=== PATIENT | female | born 1965 | race Caucasian/White ===

== ENCOUNTER → 2022-03-27 | Outpatient (CLI) | payer OTHER, MEDICAID ==
[~2022-03-27] MED LIST: CARB1TAB42 PO; HYDR-4353 PO
== END | disposition home or self-care (01) ==
LOC: VAS 16:03
PROVIDERS: ATTEND Orthopaedic Surgery
DX: M79.661 Pain in right lower leg (principal)
CPT/HCPCS: 93971

== ENCOUNTER 2022-06-21 06:17 | Inpatient (IN) | payer OTHER ==
[2022-06-15 13:17] LABS: BASOPHILS # (AUTO) 0.1 X10'3 (0-0.2); BASOPHILS % (AUTO) 1.1 % (0-1); EOSINOPHILS # (AUTO) 0.2 X10'3 (0-0.9); EOSINOPHILS % (AUTO) 3.5 % (0-6); LYMPHOCYTES # (AUTO) 1.7 X10'3 (1.1-4.8); LYMPHOCYTES % (AUTO) 29.8 % (21-51); MEAN CORPUSCULAR HEMOGLOBIN 28.6 PG (27.0-31.0); MEAN CORPUSCULAR HGB CONC 32.6 g/dL (33.0-36.5); MEAN CORPUSCULAR VOLUME 87.9 FL (78-98); MEAN PLATELET VOLUME 7.6 FL (7.4-10.4); MONOCYTES # (AUTO) 0.5 X10'3 (0-0.9); MONOCYTES % (AUTO) 8.9 % (2-12); NEUTROPHILS # (AUTO) 3.2 X10'3 (1.8-7.7); NEUTROPHILS % (AUTO) 56.7 % (42-75); PRE OP HEMATOCRIT 44.1 % (35.0-45.0); PRE OP HEMOGLOBIN 14.4 g/dL (12.0-16.0); PRE OP PLATELET COUNT 359 X10'3 (140-440); RED BLOOD COUNT 5.01 X10'6 (4.20-5.60); RED CELL DISTRIBUTION WIDTH 14.2 % (11.5-14.5)
[2022-06-15 13:31] LABS: ALBUMIN 3.7 G/DL (3.4-5.0); ALBUMIN/GLOBULIN RATIO 1.1 (1.1-1.5); ALKALINE PHOSPHATASE 135 IU/L (46-116); BLOOD UREA NITROGEN 13 MG/DL (7-18); BUN/CREATININE RATIO 16.3 (10.0-20.0); CALCIUM 9.2 MG/DL (8.5-10.1); CHLORIDE 103 MMOL/L (99-107); PRE OP ALT 24 U/L (30-65); PRE OP ANION GAP 7 (8-16); PRE OP AST 23 U/L (10-37); PRE OP BILIRUB, TOTAL 0.3 MG/DL (0.0-1.0); PRE OP GLUCOSE 112 MG/DL (70-104); PRE OP POTASSIUM 4.2 MMOL/L (3.4-5.1); PRE OP SODIUM 138 MMOL/L (135-145); TOTAL CARBON DIOXIDE 27.6 MMOL/L (24-32); TOTAL PROTEIN 7.2 G/DL (6.4-8.2); eGFR 74 ML/MIN
[2022-06-21] VITALS (18 sets, daily range): BP systolic 113–154; BP diastolic 72–95
[~2022-06-21] VITALS: Ht 160 cm; Wt 75.8 kg
[~2022-06-21 06:17] MED LIST changes: -CARB1TAB42 PO; -HYDR-4353 PO; +NO HOME MEDS; +cefazolin 2gm/D5W 100mL 100 ML IV ONE; +famotidine 20mg tablet PO ONE; +ringers solution, lacted 1,000 ML IV SCH; +tranexamic acid inj. 1,000 MG in normal saline IV soln 100ML IV ONE; +vancomycin 1,500 MG in NS 300ml IV soln IV ONE
[2022-06-21] MEDS ORDERED: epiNEPHrine 1 mg/ml inj ONE (07:33)
[2022-06-21] MEDS ORDERED: ROPIVAcaine 0.5% (5mg/ml) 30ml vial ONE (07:34)
[2022-06-21] MEDS ORDERED: vancomycin 1,000mg inj ONE (07:34)
[2022-06-21] MEDS ORDERED: morphine 10mg/ml inj. ONE (07:34)
[2022-06-21] MEDS ORDERED: cloNIDine hcl/PF 100mcg/ml inj ONE (07:58)
[2022-06-21] MEDS ORDERED: MIDAZolam 1 MG/ML 5ML VIAL ONE (07:59)
[2022-06-21] MEDS ORDERED: fentaNYL/PF 50MCG/1 ML 2ML syringe ONE ×2 (07:59→10:26)
[2022-06-21] MEDS ORDERED: morphine 4 MG/ML inj SYRINge IV PRN (09:45)
[2022-06-21] MEDS ORDERED: ondansetron/PF 4mg/2ml inj IV PRN ×2 (09:45→11:25)
[2022-06-21] MEDS ORDERED: morphine 2 MG/ML inj. syringe IV PRN (09:45)
[2022-06-21] MEDS ORDERED: ringers solution, lacted 1,000 ML IV SCH (09:45)
[2022-06-21] MEDS ORDERED: meperidine/PF 25mg/ml syringe IV PRN ×3 (09:45)
[2022-06-21] MEDS ORDERED: proCHLORperazine 10 MG/2 ml inj IV PRN (09:45)
[2022-06-21] MEDS ORDERED: ketamine 50mg/5ml syringe ONE (09:47)
[2022-06-21] MEDS ORDERED: ROPIVAcaine 0.2% (10 MG/5 ML) BOLUS INJECTION ADDCANAL PRN (09:50)
[2022-06-21] MEDS ORDERED: dexamethasone sod phosphate 4mg/ml inj. ONE (09:50)
[2022-06-21] MEDS ORDERED: propofol inj 20 ML IV ONE (09:50)
[2022-06-21] MEDS ORDERED: LIDOcaine 1%/PF 5ML 10 MG/ML VIAL ONE (09:50)
[2022-06-21] MEDS ORDERED: acetaminophen 1,000mg/100ml IV 100 ML IV ONE (10:53)
[2022-06-21] MEDS ORDERED: acetaminophen 325mg tablet PO PRN (11:25)
[2022-06-21] MEDS ORDERED: naloxone 0.4 mg/ml inj IV PRN (11:25)
[2022-06-21] MEDS ORDERED: magnesium hydroxide 30ml (MOM) UD suspension PO PRN (11:25)
[2022-06-21] MEDS ORDERED: oxyCODONE IR 5mg (immed. release) tablet PO PRN (11:25)
[2022-06-21] MEDS ORDERED: bisacodyl 10mg suppository rectal RC PRN (11:25)
--- NOTE | 2022-06-21 11:35 | NUR ---
Received from OR via BED, accompanied by Anesthesiologist and report given by Anesthesiologist. PATIENT WAKING UP, NO S/S OF PAIN, V/S WNL, SCD ON, 20G TO RUE, DILMA drsg to LEFT KNEE CDI with ON Q BALL AT 2ML/HR. F/C DRAINING CLEAR YELLOW URINE.
[2022-06-21] MEDS: ROPIVAcaine 0.2%/PF PUMP/bolus 545 ML ADDCANAL SCH (11:53)
[2022-06-21] MEDS: oxyCODONE IR 5mg (immed. release) tablet PO PRN (12:24)
--- NOTE | 2022-06-21 12:25 | NUR ---
PATIENT A&OX4, 06/26 PAIN SEE EMAR, V/S WNL, SCD ON, 20G TO RUE, DILMA drsg to LEFT KNEE CDI with ON Q BALL AT 2ML/HR. F/C DRAINING CLEAR YELLOW URINE. PATIENT TAKEN TO ROOM WITH ALL BELONGINGS AND HOOKED UP TO MONITORS IN ROOM AND GIVEN CALL LIGHT, REPORT GIVEN TO RN WHO HAS TAKEN OVER PATIENT CARE.
[2022-06-21] MEDS: tranexamic acid inj. 1,000 MG in normal saline 100ml IV soln 90 ML IV ONE ×2 (15:09→15:14)
[2022-06-21] MEDS: acetaminophen 325mg tablet PO SCH ×2 (15:10→20:26)
[2022-06-21] MEDS: gabapentin 300mg capsule PO SCH ×2 (15:11→20:27)
[2022-06-21] MEDS: ceFAZolin/D5W- 1GM premix 50 ML IV SCH ×2 (16:48→23:32)
--- NOTE | 2022-06-21 18:11 | NUR ---
Problems reprioritized. Patient report given, questions answered & plan of care reviewed with PRUDENCE RN.
[2022-06-21] MEDS: potassium cl 20mEq in 1/2 NS 1,000 ML IV SCH (19:08)
[2022-06-21] MEDS: HYDROmorphone 1 mg/ml syringe IV PRN (19:09)
[2022-06-21] MEDS ORDERED: vancomycin/NS 1 GM ADD-VANTAGE 250 ML IV SCH (20:00)
[2022-06-21] MEDS: sennosides 8.6mg tablet PO SCH (20:27)
[2022-06-22] MEDS: acetaminophen 325mg tablet PO SCH ×4 (01:55→20:15)
[2022-06-22 02:11] VITALS: BP 129/81
[2022-06-22] MEDS: potassium cl 20mEq in 1/2 NS 1,000 ML IV SCH (03:59)
[2022-06-22] MEDS: oxyCODONE IR 5mg (immed. release) tablet PO PRN ×4 (04:00→23:10)
[2022-06-22] MEDS: HYDROmorphone 1 mg/ml syringe IV PRN ×3 (06:28→18:58)
--- NOTE | 2022-06-22 06:31 | NUR ---
Problems reprioritized. Patient report given, questions answered & plan of care reviewed with SACHIN CARRANZA.
--- NOTE | 2022-06-22 06:36 | NUR ---
Patient in room [facility]. I have received report from pari patino and had the opportunity to ask questions and assume patient care.
[2022-06-22 07:08] VITALS: BP 147/85
[2022-06-22] MEDS: enoxaparin 30mg/0.3ml syringe SQ SCH (08:00)
--- NOTE | 2022-06-22 08:15 | NUR ---
notified by PT that pts surgical wound was bleeding through dressing before getting pt out of bed. dressing was reinforced with 4x4s, gauze, and new knee wrap. pt was examined by dr matson and notified of wound bleeding.
[2022-06-22] MEDS: gabapentin 300mg capsule PO SCH (08:25)
[2022-06-22 10:00] VITALS: BP 158/94
--- NOTE | 2022-06-22 11:00 | NUR ---
Pts rodrickther confronted me in the hallway very aggressively upset that the pts pulido cath was taken out. i explained that it was normal protocol to take them out post op day 1. she asked if she has peed yet, i told her that she had not but sometimes it takes 4-6 hrs for pt to feel the urge to void. we got pt up to commode and she voided. bladder scan was done after and had 0 mls.
[2022-06-22] MEDS ORDERED: carbidopa/levodopa 10/100mg tab PO ONE (12:23)
[2022-06-22 13:59] LABS: BASOPHILS # (AUTO) 0.1 X10'3 (0-0.2); BASOPHILS % (AUTO) 0.5 % (0-1); EOSINOPHILS % (AUTO) 0.1 % (0-6); HEMATOCRIT 37.7 % (35.0-45.0); HEMOGLOBIN 12.3 g/dl (12.0-16.0); LYMPHOCYTES # (AUTO) 1.3 X10'3 (1.1-4.8); LYMPHOCYTES % (AUTO) 11.8 % (21-51); MEAN CORPUSCULAR HGB CONC 32.6 g/dL (33.0-36.5); MEAN CORPUSCULAR VOLUME 88.8 FL (78-98); MEAN PLATELET VOLUME 7.9 FL (7.4-10.4); MONOCYTES # (AUTO) 1.3 X10'3 (0-0.9); NEUTROPHILS # (AUTO) 8.2 X10'3 (1.8-7.7); NEUTROPHILS % (AUTO) 75.6 % (42-75); PLATELET COUNT 321 X10'3 (140-440); RED BLOOD COUNT 4.25 X10'6 (4.20-5.60); RED CELL DISTRIBUTION WIDTH 14.8 % (11.5-14.5); WHITE BLOOD COUNT 10.8 X10'3 (4.5-11.0)
[2022-06-22] MEDS: sennosides 8.6mg tablet PO SCH (14:38)
--- NOTE | 2022-06-22 16:04 | NUR ---
Joint surgery consult: Pt s/p L knee surgery this admit per EMR. Pt sleeping/snoring during RD visit; written high protein diet ed w/ RD contact information left at bedside. Addendum: 06/22/22 at [address] Amended: Links added.
[2022-06-22 18:00] VITALS: BP 160/76
--- NOTE | 2022-06-22 18:31 | NUR ---
Problems reprioritized. Patient report given, questions answered & plan of care reviewed with lona patino.
[2022-06-22] MEDS: celeCOXIB 100mg capsule PO SCH (20:16)
[2022-06-22 22:00] VITALS: BP 158/80
[2022-06-22] MEDS: carbidopa/levodopa 10/100mg tab PO SCH (22:22)
[2022-06-23] MEDS: HYDROmorphone 1 mg/ml syringe IV PRN ×3 (00:39→12:24)
[2022-06-23] MEDS: acetaminophen 325mg tablet PO SCH ×2 (02:00→10:05)
[2022-06-23] MEDS: ROPIVAcaine 0.2%/PF PUMP/bolus 545 ML ADDCANAL SCH (03:45)
[2022-06-23] MEDS: oxyCODONE IR 5mg (immed. release) tablet PO PRN ×5 (04:49→22:50)
[2022-06-23 06:00] VITALS: BP 170/84
--- NOTE | 2022-06-23 06:40 | NUR ---
Patient in room [facility]. I have received report from TERE Sheth and had the opportunity to ask questions and assume patient care.
[2022-06-23 08:47] LABS: BASOPHILS % (AUTO) 0.4 % (0-1); EOSINOPHILS % (AUTO) 0.4 % (0-6); HEMATOCRIT 35.7 % (35.0-45.0); HEMOGLOBIN 11.5 g/dl (12.0-16.0); LYMPHOCYTES # (AUTO) 1.1 X10'3 (1.1-4.8); LYMPHOCYTES % (AUTO) 11.9 % (21-51); MEAN CORPUSCULAR HEMOGLOBIN 28.8 PG (27.0-31.0); MEAN CORPUSCULAR HGB CONC 32.3 g/dL (33.0-36.5); MEAN CORPUSCULAR VOLUME 89.2 FL (78-98); MEAN PLATELET VOLUME 8.2 FL (7.4-10.4); MONOCYTES # (AUTO) 0.8 X10'3 (0-0.9); MONOCYTES % (AUTO) 9.4 % (2-12); NEUTROPHILS # (AUTO) 6.9 X10'3 (1.8-7.7); NEUTROPHILS % (AUTO) 77.9 % (42-75); PLATELET COUNT 259 X10'3 (140-440); RED BLOOD COUNT 4.01 X10'6 (4.20-5.60); RED CELL DISTRIBUTION WIDTH 14.4 % (11.5-14.5); WHITE BLOOD COUNT 8.9 X10'3 (4.5-11.0)
[2022-06-23 10:00] VITALS: BP 153/87
[2022-06-23] MEDS: celeCOXIB 100mg capsule PO SCH ×2 (10:05→20:04)
[2022-06-23] MEDS: enoxaparin 30mg/0.3ml syringe SQ SCH (10:06)
--- NOTE | 2022-06-23 10:30 | NUR ---
called toni guerrero re: pts surgical wound was bleeding and knee was swollen. she stated that she would be up to the floor see the soon. Addendum: 06/23/22 at 1558 by Naty Alvarez RN date of occurrence was 06/22/22 1030
[2022-06-23] MEDS ORDERED: acetaminophen 325mg tablet PO PRN (11:25)
[2022-06-23 18:00] VITALS: BP 140/83
--- NOTE | 2022-06-23 18:50 | NUR ---
Problems reprioritized. Patient report given, questions answered & plan of care reviewed with TERE Smith.
[2022-06-23] MEDS: sennosides 8.6mg tablet PO SCH (20:04)
[2022-06-23] MEDS: carbidopa/levodopa 10/100mg tab PO SCH (20:04)
[2022-06-23 22:00] VITALS: BP 149/87
[2022-06-24 05:00] VITALS: BP 128/80
[2022-06-24] MEDS: oxyCODONE IR 5mg (immed. release) tablet PO PRN ×2 (05:03→11:13)
[2022-06-24 05:34] LABS: BASOPHILS # (AUTO) 0.1 X10'3 (0-0.2); BASOPHILS % (AUTO) 0.6 % (0-1); EOSINOPHILS # (AUTO) 0.1 X10'3 (0-0.9); EOSINOPHILS % (AUTO) 0.9 % (0-6); HEMOGLOBIN 10.6 g/dl (12.0-16.0); LYMPHOCYTES # (AUTO) 1.4 X10'3 (1.1-4.8); LYMPHOCYTES % (AUTO) 16.3 % (21-51); MEAN CORPUSCULAR HEMOGLOBIN 29.2 PG (27.0-31.0); MEAN CORPUSCULAR HGB CONC 33.1 g/dL (33.0-36.5); MEAN PLATELET VOLUME 8.5 FL (7.4-10.4); MONOCYTES # (AUTO) 0.7 X10'3 (0-0.9); MONOCYTES % (AUTO) 8.5 % (2-12); NEUTROPHILS # (AUTO) 6.4 X10'3 (1.8-7.7); NEUTROPHILS % (AUTO) 73.7 % (42-75); PLATELET COUNT 269 X10'3 (140-440); RED BLOOD COUNT 3.64 X10'6 (4.20-5.60); RED CELL DISTRIBUTION WIDTH 14.5 % (11.5-14.5); WHITE BLOOD COUNT 8.7 X10'3 (4.5-11.0)
--- NOTE | 2022-06-24 06:30 | NUR ---
Patient in room [facility]. I have received report from TERE Smith and had the opportunity to ask questions and assume patient care.
[2022-06-24] MEDS: enoxaparin 30mg/0.3ml syringe SQ SCH (08:38)
[2022-06-24] MEDS: celeCOXIB 100mg capsule PO SCH (08:38)
[2022-06-24] MEDS: HYDROmorphone 1 mg/ml syringe IV PRN (08:39)
[2022-06-24 10:00] VITALS: BP 138/86
[2022-06-24] MEDS ORDERED: oxyCODONE IR 5mg (immed. release) tablet PO ONE (14:00)
--- NOTE | 2022-06-24 14:30 | NUR ---
DC inst provided to pt & pt's daughter. IV DC'd, tip intact. All belongings sent w/pt. WC to vehicle.
== END 2022-06-24 14:30 | disposition home health service (06) | DRG 470 ==
LOC: PAS IN 06:17 → UNDOADMIN 06:17 → PAS 06:17 → SUR 3N 11:43 → PAS IN 11:43 → PAS 06-22 07:59 → SUR 3N 06-22 08:00
PROVIDERS: ADMIT Physician Assistant; ATTEND Orthopaedic Surgery
PROC: 3E0T3BZ Introduction of Anesthetic Agent into Peripheral Nerves and Plexi, Percutaneous Approach (ICD-10-PCS; 2022-06-21)
PROC: 0SRD0J9 Replacement of Left Knee Joint with Synthetic Substitute, Cemented, Open Approach (ICD-10-PCS; principal; 2022-06-21 08:27)
DX: M17.12 Unilateral primary osteoarthritis, left knee (principal); M65.862 Other synovitis and tenosynovitis, left lower leg; M62.831 Muscle spasm of calf
CPT/HCPCS: 36415; 71046; 73560; 80053; 82948; 85025; 87081; 93005; 97116; 97161; 97530; A4215; A6253; A6258; A6446; A6449; A7000; C1713; C1758; C1776; C9250; G0378; J0131; J0171; J0690; J0735; J1100; J1170; J1650; J2250; J2274; J2704; J2795; J3010; J3370; J3480; J3490; J7120

== ENCOUNTER 2022-08-29 15:54 | Outpatient (CLI) | payer OTHER ==
[~2022-08-29 15:54] MED LIST changes: -cefazolin 2gm/D5W 100mL 100 ML IV ONE; -famotidine 20mg tablet PO ONE; -ringers solution, lacted 1,000 ML IV SCH; -tranexamic acid inj. 1,000 MG in normal saline IV soln 100ML IV ONE; -vancomycin 1,500 MG in NS 300ml IV soln IV ONE
== END 2022-08-29 23:59 | disposition home or self-care (01) ==
LOC: VAS 15:54
PROVIDERS: ATTEND Physician Assistant
DX: M79.605 Pain in left leg (principal); R60.0 Localized edema
CPT/HCPCS: 93971